=== PATIENT | female | born 1960 | race Hispanic/Latino ===

== ENCOUNTER → 2017-11-22 | Outpatient (CLI) | payer OTHER, MEDICARE | END | disposition home or self-care (01) | LOC: RAH 12:19 | PROVIDERS: ATTEND Family Medicine | DX: R42 Dizziness and giddiness (principal); R51 Headache | CPT/HCPCS: 70450 ==

== ENCOUNTER → 2018-12-24 | Outpatient (CLI) | payer OTHER, MEDICARE | END | disposition home or self-care (01) | LOC: RAH 13:37 | PROVIDERS: ATTEND Family Medicine | DX: Z12.31 Encounter for screening mammogram for malignant neoplasm of breast (principal) | CPT/HCPCS: 77067 ==

== ENCOUNTER → 2021-04-16 | Outpatient (CLI) | payer OTHER, MEDICARE | END | disposition home or self-care (01) | LOC: RAH 07:45 | PROVIDERS: ATTEND Family Medicine | DX: R92.2 Inconclusive mammogram (principal); N63.10 Unspecified lump in the right breast, unspecified quadrant | CPT/HCPCS: 76641; 77066 ==

== ENCOUNTER → 2022-10-11 | Outpatient (CLI) | payer OTHER, MEDICARE | END | disposition home or self-care (01) | LOC: RAH 09:19 | PROVIDERS: ATTEND Family Medicine | DX: Z12.31 Encounter for screening mammogram for malignant neoplasm of breast (principal) | CPT/HCPCS: 77067 ==

== ENCOUNTER → 2023-08-23 | Outpatient (CLI) | payer OTHER, MEDICARE | END | disposition home or self-care (01) | LOC: RAH 08-15 09:43 | PROVIDERS: ATTEND Family Medicine | DX: N64.4 Mastodynia (principal); R92.30 Dense breasts, unspecified | CPT/HCPCS: 77066 ==

== ENCOUNTER → 2023-10-26 | Outpatient (CLI) | payer OTHER, MEDICARE | END | disposition home or self-care (01) | LOC: RAH 10:23 | PROVIDERS: ATTEND Family Medicine | DX: N60.01 Solitary cyst of right breast (principal); N63.10 Unspecified lump in the right breast, unspecified quadrant | CPT/HCPCS: 76641 ==

== ENCOUNTER → 2024-03-01 | Outpatient (CLI) | payer OTHER, MEDICARE | END | disposition home or self-care (01) | LOC: RAH 09:48 | PROVIDERS: ATTEND Student in an Organized Health Care Education/Training Program | DX: K44.9 Diaphragmatic hernia without obstruction or gangrene (principal); K21.9 Gastro-esophageal reflux disease without esophagitis | CPT/HCPCS: 74240 ==

== ENCOUNTER 2024-03-12 06:02 | Day surgery (SDC) | payer OTHER, MEDICARE ==
[~2024-03-12] VITALS: Ht 160 cm; Wt 81.6 kg
[2024-03-12] VITALS (12 sets, daily range): BP systolic 114–133; BP diastolic 46–75; PULSE 60–72; RESP 11–19
[2024-03-12] MEDS: 0.9%NACL 1000ML 1,000 ML IV ONE (07:44)
[2024-03-12] MEDS ORDERED: LISI5TAB21 PO (07:53)
[2024-03-12] MEDS ORDERED: PHEN15CA61 PO (07:53)
[2024-03-12] MEDS ORDERED: SUCR1TAB2 PO (07:53)
[2024-03-12] MEDS ORDERED: AEC81 PO (07:53)
[2024-03-12] MEDS ORDERED: PANT40TA54 PO (07:53)
[2024-03-12] MEDS ORDERED: AMIT10TA6 PO (07:53)
[2024-03-12] MEDS ORDERED: ROSU20TA73 PO (07:53)
[2024-03-12] MEDS ORDERED: FAMO40TA7 PO (07:53)
[2024-03-12] MEDS ORDERED: PROPOFOL 10 MG/ML 20ML VIAL IV ONE (08:10)
== END 2024-03-12 10:00 | disposition home or self-care (01) ==
LOC: DAH 06:02 → ENDO 06:02
PROVIDERS: ATTEND Surgery
DX: K21.00 Gastro-esophageal reflux disease with esophagitis, without bleeding (principal); K29.50 Unspecified chronic gastritis without bleeding; K44.9 Diaphragmatic hernia without obstruction or gangrene; K22.89 Other specified disease of esophagus; K31.89 Other diseases of stomach and duodenum; E66.9 Obesity, unspecified; G45.9 Transient cerebral ischemic attack, unspecified; E78.00 Pure hypercholesterolemia, unspecified; Z90.710 Acquired absence of both cervix and uterus; Z90.49 Acquired absence of other specified parts of digestive tract; Z88.0 Allergy status to penicillin; Z68.34 Body mass index [BMI] 34.0-34.9, adult; Z79.82 Long term (current) use of aspirin; Z79.899 Other long term (current) drug therapy
CPT/HCPCS: 43239; J7030; J2704; A4620; A4215; J3490

== ENCOUNTER 2024-05-15 08:51 | Observation (INO) | payer OTHER, MEDICARE ==
[2024-05-13 13:42] LABS: BASOPHILS # (AUTO) 0.01 K/uL (0.00-0.20); BASOPHILS % (AUTO) 0.2 % (0.0-5.0); EOSINOPHILS # (AUTO) 0.13 K/uL (0.00-0.70); HEMATOCRIT 42.3 % (36-48); IMMATURE GRANULOCYTE ABSOLUTE 0.02 K/uL (0-1); LYMPHOCYTES # (AUTO) 1.5 K/uL (1.0-4.8); LYMPHOCYTES % (AUTO) 23.4 % (21.0-51.0); MEAN CORPUSCULAR HEMOGLOBIN 30.5 pg (27.0-33.0); MEAN CORPUSCULAR HGB CONC 31.7 g/dL (32.0-36.0); MEAN CORPUSCULAR VOLUME 96.4 fL (79-99); MONOCYTES # (AUTO) 0.8 K/uL (0.1-1.0); MONOCYTES % (AUTO) 11.6 % (3.0-13.0); NEUTROPHILS # (AUTO) 4.1 K/uL (1.8-7.7); NEUTROPHILS % (AUTO) 62.5 % (40.0-77.0); PLATELET COUNT (AUTO) 181 K/uL (130-400); RED BLOOD CELL COUNT(AUTO) 4.39 MIL/uL (4.00-5.50); RED CELL DISTRIBUTION WIDTH 12.7 % (11.0-15.5); WHITE BLOOD COUNT (AUTO) 6.5 K/uL (4.8-10.8)
[2024-05-13 13:49] VITALS: BP 109/64; PULSE 63; RESP 16; TEMP 97.1
[2024-05-15] VITALS (24 sets, daily range): BP systolic 118–148; BP diastolic 50–76; PULSE 57–75; RESP 14–19; TEMP 97.6–98.2; O2SAT 99
[~2024-05-15] VITALS: Ht 160 cm; Wt 75.2 kg
[~2024-05-15 08:51] MED LIST: AEC81 PO; FAMO40TA7 PO; LISI5TAB21 PO; PANT40TA54 PO; ROSU20TA73 PO; SUCR1TAB2 PO; [UNRECOGNIZED DRUG - OTHER] PO
[2024-05-15 10:10] LABS: INR 1.01 (0.85-1.15); PROTHROMBIN TIME 10.9 SEC (9.6-11.6)
[2024-05-15 10:11] LABS: PARTIAL THROMBOPLASTIN TIME 26.5 SEC (26.3-35.5)
[2024-05-15] MEDS ORDERED: FENTanyl CITRate PF 50 MCG/1 ML 2ML VIAL ONE (10:58)
[2024-05-15] MEDS ORDERED: LIDOCAINE PF 100MG/5ML (2%) SYRINGE 5ML ONE (10:58)
[2024-05-15] MEDS ORDERED: MIDAZOLAM HCL 1 MG/ML 2ML VIAL ONE (10:58)
[2024-05-15] MEDS ORDERED: proPOFol 10 MG/ML 20ML VIAL IV ONE (10:59)
[2024-05-15] MEDS ORDERED: SUCCINYLCHOLINE CHLORIDE 20 MG/ML 10 ML VIAL ONE (10:59)
[2024-05-15] MEDS ORDERED: rocuRONium bROMide 10MG/1ML 5ML VL ONE (10:59)
[2024-05-15] MEDS: CLINDAMYCIN 900MG/6ML INJ IVPB ONE (11:30)
[2024-05-15] MEDS ORDERED: ONDANSETRON 4MG INJ ONE (11:38)
[2024-05-15] MEDS ORDERED: GLYCOPYRROLATE 0.2 MG/ML 5 ML VIAL ONE (11:38)
[2024-05-15] MEDS ORDERED: dexaMETHasone SOD PHOSPHATE 10MG/ML 1ML VIAL ONE (11:38)
[2024-05-15] MEDS ORDERED: NEOSTIGMINE METHYLSULFATE 1MG/ML IV ONE (11:38)
[2024-05-15] MEDS: BUPIvacaine/PF 0.5% 30ML VIAL ONE (11:50)
[2024-05-15] MEDS ORDERED: ePHEDrine SULFate 50 MG/ML AMPULE ONE (11:54)
[2024-05-15] MEDS ORDERED: metoCLOPRAmide 10 MG/2 ML VIAL IVP PRN (14:30)
[2024-05-15] MEDS ORDERED: ONDANSETRON 4MG INJ IVP PRN (14:30)
[2024-05-15] MEDS ORDERED: hydroMORPHone 0.5 MG SYG (0.5MG/0.5ML) IVP PRN (14:30)
[2024-05-15] MEDS ORDERED: HYDROcod/acetaMINOPHEN 7.5/325 MG 15 ML UDCUP PO PRN (14:30)
[2024-05-15] MEDS ORDERED: DIFENIDOL PO PRN (15:00)
[2024-05-15] MEDS: CLINDAMYCIN IVPB 900MG/50ML 50 ML IV ONE (16:19)
[2024-05-15] MEDS: LACTATED RINGERS 1000ML 1,000 ML IV ONE (16:19)
[2024-05-15] MEDS: hydroMORPHone 1 MG INJ ONE (16:19)
[2024-05-15] MEDS: FAMOTIDINE 20MG VIAL IV ONE (16:20)
[2024-05-15] MEDS: acetaMINOPHEN 1,000 MG/100 ML VIAL IV ONE (16:20)
[2024-05-15] MEDS: ketOROlac 15MG/ML VIAL (15MG/ML) IV PRN (16:23)
[2024-05-15] MEDS: LACTATED RINGERS 1000ML 1,000 ML IV SCH (16:29)
[2024-05-15] MEDS: FAMOTIDINE 20MG VIAL IV SCH (21:54)
[2024-05-15] MEDS: LISINOPRIL 5 MG TABLET PO SCH (21:54)
[2024-05-15] MEDS: ENOXAPARIN SODIUM 30 MG/0.3 ML SQ SCH (21:56)
[2024-05-16] VITALS (7 sets, daily range): BP systolic 111–134; BP diastolic 46–66; PULSE 54–66; RESP 16–18; TEMP 97.8–98.5; O2SAT 96
== END 2024-05-16 17:35 | disposition home or self-care (01) ==
LOC: DAH 08:51 → INTOOBSV 08:52 → DAHIP 08:52 → 3CH 14:55
PROVIDERS: ADMIT Surgery; ATTEND Surgery
DX: K44.9 Diaphragmatic hernia without obstruction or gangrene (principal); K21.9 Gastro-esophageal reflux disease without esophagitis; G45.9 Transient cerebral ischemic attack, unspecified; I10 Essential (primary) hypertension; E66.9 Obesity, unspecified; E78.00 Pure hypercholesterolemia, unspecified; M19.90 Unspecified osteoarthritis, unspecified site; Z79.899 Other long term (current) drug therapy; Z86.2 Personal history of diseases of the blood and blood-forming organs and certain disorders involving the immune mechanism; Z79.82 Long term (current) use of aspirin; Z88.0 Allergy status to penicillin; Z90.710 Acquired absence of both cervix and uterus; Z90.49 Acquired absence of other specified parts of digestive tract; Z68.29 Body mass index [BMI] 29.0-29.9, adult
CPT/HCPCS: 80048; 85025; 86850; 86900; 86901; 36415 ×2; 43282; 85610; 85730; 96374; 96376 ×2; 96372 ×2; 96375; 97161; 97116; 97530 ×2; A6260; A4663; A4215 ×2; J7120; J3490 ×6; J3010; J1170; J1100; J0330; J2001; J1650 ×2; J2250; J2704; J2405; J2710; J0665; J1885 ×3; A4930 ×2; C1781; A4657; A4222; A4221; A4216; G0378; A4223 ×2; A4600; 43235; G8980-CH; G8983-CI

== ENCOUNTER → 2024-07-08 | Outpatient (CLI) | payer OTHER, MEDICARE ==
[~2024-07-08] MED LIST changes: -ROSU20TA73 PO; +ROSU20TA98 PO
--- NOTE | 2024-07-08 15:34 | HMCIMG ---
PROCEDURE: MAMMO DX BILATERAL HISTORY: Breast pain COMPARISON: 08/23/2023 TECHNIQUE: Bilateral digital diagnostic mammogram with CAD was performed. No additional views were obtained. FINDINGS: The breasts are heterogeneously dense, which may obscure small masses. There is no evidence of a dominant mass, or suspicious microcalcification. There is no evidence of nipple retraction or skin thickening. IMPRESSION: 1. Stable mammogram. BI-RADS: CATEGORY 2: BENIGN FINDINGS Recommend monthly self breast exam as well as annual clinical examination. A negative x-ray should not delay biopsy if a dominant or clinically suspicious mass is present, since 8-10% of cancers are not identified by mammography. Dense breasts particularly, may obscure an underlying neoplasm. Some of these may be detected clinically and therefore, clinical examination is an essential part of breast evaluation.
== END | disposition home or self-care (01) ==
LOC: RAH 14:38
PROVIDERS: ATTEND Family Medicine
DX: R92.333 Mammographic heterogeneous density, bilateral breasts (principal); N64.4 Mastodynia
CPT/HCPCS: 77066